=== PATIENT | female | born 1980 | race Caucasian/White ===

== ENCOUNTER 2018-01-11 07:23 | Day surgery (SDC) | payer OTHER ==
[~2018-01-11] VITALS: Ht 152.4 cm; Wt 50.8 kg
[2018-01-11 07:53] VITALS: BP 114/74
[2018-01-11 11:41] VITALS: BP 105/70
== END 2018-01-11 11:15 | disposition home or self-care (01) ==
LOC: GI 07:23 → OR 09:30 → GI 09:30
PROVIDERS: Internal Medicine Gastroenterology
PROC: 0DJD8ZZ Inspection of Lower Intestinal Tract, Via Natural or Artificial Opening Endoscopic (ICD-10-PCS; principal; 2018-01-11 09:30)
DX: K59.00 Constipation, unspecified (principal); Z53.8 Procedure and treatment not carried out for other reasons; Z68.23 Body mass index [BMI] 23.0-23.9, adult
CPT/HCPCS: 45378; G0500; J1200; J1610; J2250; J2310; J3010; J3490

== ENCOUNTER 2018-04-19 06:27 | Day surgery (SDC) | payer OTHER ==
[~2018-04-19] VITALS: Ht 134.6 cm; Wt 51.7 kg
[2018-04-19 06:49] VITALS: BP 119/91
[2018-04-19 12:22] VITALS: BP 102/72
== END 2018-04-19 10:30 | disposition home or self-care (01) ==
LOC: DS 06:27 → OR 07:30 → GI 07:30 → DS 10:30
PROVIDERS: Internal Medicine Gastroenterology
PROC: 0DBN8ZX Excision of Sigmoid Colon, Via Natural or Artificial Opening Endoscopic, Diagnostic (ICD-10-PCS; principal; 2018-04-19 07:30)
DX: K59.00 Constipation, unspecified (principal); K63.3 Ulcer of intestine; K64.8 Other hemorrhoids
CPT/HCPCS: 45378; J1200; J1610; J2250; J2310; J3010; J3490